=== PATIENT | male | born 1950 | race Caucasian/White ===

== ENCOUNTER 2017-09-01 15:10 | Emergency (ER) | payer OTHER ==
[~2017-09-01] VITALS: Ht 172.7 cm; Wt 76.2 kg
[2017-09-01 15:16] VITALS: BP 128/83
== END 2017-09-01 16:19 | disposition home or self-care (01) ==
LOC: ED 15:10 → EDBD 15:10 → ED 16:19
DX: K64.5 Perianal venous thrombosis (principal)
CPT/HCPCS: J2001